=== PATIENT | male | born 1945 | race African-American/Black ===

== ENCOUNTER 2020-05-24 19:56 | Observation (INO) | payer MEDICARE, BC, OTHER ==
[2020-05-24 20:38] LABS: #Basophils 0.1 thou/uL (0.0-0.2); #Eosinphils 0.1 thou/uL (0.0-0.7); #Monocytes 0.6 thou/uL (0.11-0.59); #Neutrophils 2.3 thou/uL (1.40-6.50); %Basophils 2.6 % (0.0-1.0); %Eosinophils 1.4 % (0.0-10.0); %Lymphocytes 38.4 % (21.0-51.0); %Monocytes 11.8 % (0.0-10.0); %Neutrophils 45.7 % (42.0-75.0); Hemoglobin 13.6 g/dL (14.0-18.0); Mean Corpuscular HGB CONC 33.9 g/dL (32.0-36.0); Mean Corpuscular Hemoglobin 32.6 pg (27.0-31.0); Mean Corpuscular Volume 96.3 fL (78.0-98.0); Mean Platelet Volume 7.3 fL (7.4-10.4); Platelet Count 217 thou/uL (130-400); RBC Distribution Width 10.9 % (11.5-14.5); Red Blood Cell (RBC) Count 4.17 mill/uL (4.70-6.10); White Blood Cell (WBC) Count 5.1 thou/uL (4.8-10.8)
[2020-05-24 20:58] LABS: ALT (SGPT) 20 U/L (8-55); AST (SGOT) 26 U/L (5-34); Albumin 4.1 g/dL (3.4-4.8); Alkaline Phosphatase 48 U/L (40-110); Anion Gap 13 mmol/L (10-20); BUN (Urea Nitrogen) 20 mg/dL (8.4-25.7); Bilirubin, Total 0.4 mg/dL (0.2-1.2); Calc. Creatinine Clearance 0 mL/min (70-130); Calcium 9.4 mg/dL (7.8-10.44); Carbon Dioxide 29 mmol/L (23-31); Chloride 104 mmol/L (98-107); Globulin 3.4 g/dL (2.4-3.5); Glucose 131 mg/dL (83-110); Potassium 4.2 mmol/L (3.5-5.1); Protein, Total 7.5 g/dL (5.8-8.1); Sodium 142 mmol/L (136-145)
--- NOTE | 2020-05-24 21:09 | RAD ---
Exam: Chest one view HISTORY:Dizziness. Headache. Comparison: None FINDINGS: Cardiac silhouette: Normal Aorta: Unremarkable Pulmonary vessels: Normal Costophrenic angles: Clear LUNGS: No masses or consolidation. Pneumothorax: None Osseous abnormalities: Incompletely evaluated cervical fusion hardware. IMPRESSION: No acute cardiopulmonary process.
--- NOTE | 2020-05-24 23:49 | CT ---
Exam: Head CT without contrast HISTORY: Dizziness, x3 days. Worsening symptoms COMPARISON: 03/18/2011 FINDINGS: Hemorrhage: No intraparenchymal hemorrhage or extra-axial hematoma. Brain parenchyma: Cortical rock-white matter differentiation is preserved. No mass effect or midline shift. Basilar cisterns are patent. Ventricular system: Ventricles and sulci are patent and symmetric. Calvarium: Intact. Sinuses and mastoid air cells: Right sphenoid sinus disease. IMPRESSION: 1. No acute intracranial process. 2. Right sphenoid sinus disease.
[2020-05-25 00:15] LABS: SARS-CoV-2 NAA Rapid Test Not Detected (NotDetected)
--- NOTE | 2020-05-25 00:30 | PDOC.FPRHP ---
- History of Present Illness Chief Complaint: dizziness History of Present Illness: 75YOM with a PMH of ERNESTINE, HTN & parkinsons who presented to the ED for evaluation for dizziness. Episode occurred at home tonight while walking around in kitchen cooking turkey. Cook lightheaded like he was going to pass out. Denies syncope or LOC. Says he stood still for a little while and it passed, lasting only about a minute. Had a similar episode on Saturday. Has been taking meds as prescribed with no recent changes in his medications. Eating and drinking as per normal. Admits to not using his CPAP on a regular basis. Denies any associated N/V/D, CP, SOB, palpitations. Denies any significant heart history. ED Course: no meds given in ER - Allergies/Adverse Reactions Allergies Allergy/AdvReac Type Severity Reaction Status Date / Time No Known Allergies Allergy Unverified 05/25/20 01:25 - Home Medications Medication Instructions Recorded Confirmed Type Aspirin Chewable [Aspirin Chewable 81 mg PO DAILY 05/25/20 05/25/20 History Tablet] Atorvastatin Calcium 20 mg PO DAILY 05/25/20 05/25/20 History Multivit-Min/FA/Lycopen/Lutein 05/25/20 History [Centrum Silver Men Tablet] NIFEdipine [Procardia XL] 60 mg PO DAILY 05/25/20 05/25/20 History Primidone 50 mg PO BID 05/25/20 05/25/20 History Rasagiline Mesylate 1 mg PO 05/25/20 History Triamterene/Hydrochlorothiazid 1 each PO 05/25/20 History [Dyazide 37.5-25 Capsule] traZODone HCl [Trazodone HCl] 50 mg PO QPM 05/25/20 05/25/20 History - History PMHx: ERNESTINE, HTN, HLD, Parkinson's disease PSHx: Cervical spine fusion (C5-C7), lipoma excision FHx: Mother from [place] from smoke exposure. Father from prostate [place]. Sister with DM. Social: Lives with of 18 years in [place]. No TAD. Former cigar smoker. Quit in the 80s. Denies caffeine intake - Review of Systems General: denies: fever/chills, weight/appetite/sleep changes ENT: denies: nasal congestion Respiratory: denies: cough, shortness of breath Cardiovascular: denies: chest pain, palpitation Gastrointestinal: denies: nausea, vomiting, diarrhea Genitourinary: reports: other (no hematuria). denies: dysuria Neurological: denies: numbness, syncope, weakness - Vital signs BP: 143/72 HR: 63 RR: 17 Tmax: 98.6F Pox: 98% on RA Wt: 77.11 kg - Physical Exam Constitutional: NAD, awake, alert and oriented, well developed HEENT: normocephalic and atraumatic, grossly normal vision, grossly normal hearing, MMM Neck: supple, FROM, no bruits Heart: RRR, normal S1/S2, no murmurs/rubs/gallops, no edema Lungs: CTAB, no respiratory distress, good air movement, no rales/rhonchi, no wheezing, no retractions Abdomen: soft, non-tender, bowel sounds present, no masses/distention Musculoskeletal: normal structure, normal tone, ROM grossly normal Neurological: no focal deficit, CN II-XII intact (grossly intact) Skin: no rash/lesions, no jaundice Heme/Lymphatic: no unusual bruising or bleeding Psychiatric: normal mood and affect, good judgment and insight, intact recent and remote memory FMR H&P: Results - Labs Result Diagrams: 05/24/20 20:22 05/24/20 20:22 Lab results: WBC 5.1 thou/uL (4.8-10.8) 05/24/20 20:22 Hgb 13.6 g/dL (14.0-18.0) L 05/24/20 20:22 Hct 40.2 % (42.0-52.0) L 05/24/20 20:22 MCV 96.3 fL (78.0-98.0) 05/24/20 20:22 Plt Count 217 thou/uL (130-400) 05/24/20 20:22 Neutrophils % 45.7 % (42.0-75.0) 05/24/20 20:22 Sodium 142 mmol/L (136-145) 05/24/20 20:22 Potassium 4.2 mmol/L (3.5-5.1) 05/24/20 20:22 Chloride 104 mmol/L (98-107) 05/24/20 20:22 Carbon Dioxide 29 mmol/L (23-31) 05/24/20 20:22 BUN 20 mg/dL (8.4-25.7) 05/24/20 20:22 Creatinine 1.25 mg/dL (0.7-1.3) 05/24/20 20: Glucose 131 mg/dL (83-110) H 05/24/20 20:22 Calcium 9.4 mg/dL (7.8-10.44) 05/24/20 20: Total Bilirubin 0.4 mg/dL (0.2-1.2) 05/24/20 20:22 AST 26 U/L (5-34) 05/24/20 20:22 ALT 20 U/L (8-55) 05/24/20 20:22 Alkaline Phosphatase 48 U/L (40-110) 05/24/20 20: Serum Total Protein 7.5 g/dL (5.8-8.1) 05/24/20 20: Albumin 4.1 g/dL (3.4-4.8) 05/24/20 20:22 - EKG Interpretation EKG: sinus rhythm, PVCs FMR H&P: A/P - Plan Pt is a 75yo male with PMH ERNESTINE, HTN, Parkinson's disease who presents with acute onset of lightheadedness. #presyncope, etiology unknown -ekg showed frequent PVCs, no significant heart history including arrhythmias -Brain CT: no acute intracranial process -electrolytes WNL, trop neg, TSH normal -pending orthostatics -will monitor overnight, repeat ekg in am -may need outpatient referral to guest advisor #ERNESTINE -potential etiology of PVC's -educate patient on importance of adequate treatment #HTN -continue home meds #Parkinson's disease -continue home meds #HLD -continue home meds Code: Full PCP: CONNER IVF: SL Diet: HH DVT PPx: SCDs Dispo: Admit to tele for observation, repeat ekg in am, LOS<48hrs FMR H&P: Upper Level - Pertinent history PCP: [facility] HPI: 75YOM with a PMH notable for Parkinsons disease, HTN & ERNESTINE who presented to the ED for evaluation for dizziness. Reports that earlier today while he was cooking turkey at home standing in his kitchen he had sudden onset dizziness. Reports he felt lightheaded like he might pass out and states this sensation lasted ~1 minute before subsiding on its own. Denies any associated vertigo, N/V, SOB or chest pain. Had a similar episode on Saturday but previously has never had an episode like this before. No recent medication changes & is compliant with his home meds. Has never been diagnosed with any arrhythmia or seen a guest advisor. Denies any fever/chills, cough, sore throat or dysuria or urinary frequency as well. ED course: No meds given - Pertinent findings Labs/Imaging: CT brain: NAF CXR: NAF H/H 13.6/40.2 Trop <0.010 Mag 2.0 K 4.2 REVIEW OF SYSTEMS: 12 point ROS negative except what was mentioned in HPI Vitals: BP: 124/60 HR: 63 RR: 17 Tmax: 98.6F Pox: 98% on RA Wt: 77.11 kg PHYSICAL EXAMINATION: General: Sitting up in bed in NAD HEENT: normocephalic atraumatic Neck: Supple. Full ROM. Heart/Cardiovascular System: RRR, no murmurs noted Lungs/Respiratory System: CTAB Abdomen/Gastro-Intestinal System: soft w/ no mild suprapubic abdominal tenderness, normal bowel sounds Extremities: Warm with full & equal pulses in B/L feet noted. Neuro: knitting demonstrator grossly intact; non-focal Skin: No rashes. - Plan Date/Time: 05/25/20 0030 IFreda, have evaluated this patient and agree with findings/plan as outlined by internist resident. Pertinent changes/additions are listed here. A/P: #Dizziness 2/2 cardiac arrhythmia vs. orthostasis: -Frequent PVCs noted on EKG & while examining patient in room but was asymptomatic at the time. Orthostatic vitals to be obtained in the AM. Lytes WNLs on CMP as well as Mg but will check a TSH & Phos as well. Brain CT [facility] which was WNLs. Will continue continuous cardiac monitoring overnight & obtain a repeat EKG in the AM. Will obtain a UA as well as room smelled strongly of urine to r/o an infection as a possible source of his dizziness although patient denied having any urinary issues. #Normocytic anemia: H/H 13.6/40.2 on presentation. Needs an outpatient workup. #Parkinsons Disease: Aware, will resume home meds. #HTN: Will resume home Lisinopril. #HLD: Will resume home meds. #ERNESTINE: Aware, wears a CPAP at night occasionally. Will middle school guidance counselor on importance of more consistent use. #Insomnia: Will resume home meds. PCP: [facility] ABx: None IVFs: SL VTE PPX: SCDs GI PPX: None Code status: FULL CODE Dispo: Will admit to telemetry for close observation overnight to monitor for any arrhythmias.
[2020-05-25] MEDS ORDERED: Ondansetron ODT 4 MG TAB PO PRN (01:12)
[2020-05-25] MEDS ORDERED: Ondansetron PF 4 MG/2 ML Vial IVP PRN (01:12)
[2020-05-25] MEDS ORDERED: Acetaminophen 325 MG TAB PO PRN (01:12)
[2020-05-25 01:13] LABS: Phosphorus 3.9 mg/dL (2.3-4.7)
[2020-05-25] MEDS ORDERED: traZODone HCl 50 MG TAB PO SCH (01:30)
[2020-05-25] MEDS ORDERED: traZODone HCl 50 MG TAB ONE (03:22)
--- NOTE | 2020-05-25 08:43 | PDOC.EVN ---
Addendum - Attending - Attending Attestation Date/Time: 05/25/20 4225 I personally evaluated the patient and discussed the management with Dr. Hall/Vick. I agree with the History, Examination, Assessment and Plan documented above with any addition or exceptions noted below. Patient here for symptomatic PVCs. He has history of orthostasis but symptoms not c/w that, and he is on Primidone. Will obtain echo and consult cardiology for further evaluation.
[2020-05-25] MEDS ORDERED: NIFEdipine XL 30 MG TAB ONE (10:39)
[2020-05-25] MEDS: Aspirin Chewable 81 MG TAB PO SCH (13:06)
[2020-05-25] MEDS: Atorvastatin Calcium 20 MG TAB PO SCH (13:06)
[2020-05-25] MEDS: NIFEdipine XL 60 MG TAB PO SCH (13:07)
[2020-05-25] MEDS: Primidone 50 MG TAB PO SCH ×2 (13:07→22:00)
[2020-05-25] MEDS: Triamterene/Hydrochlorothiazide 37.5 mg/25 mg Tablet PO SCH (13:08)
--- NOTE | 2020-05-25 15:54 | CON ---
DATE OF CONSULTATION: HISTORY OF PRESENT ILLNESS: Austin Li is a 75-year-old male, who denies any cardiac problems in the past. He has had 2 episodes of extreme weakness and dizziness. One occurred on May 21 and the other occurred on May 24. With these episodes, he became extremely lightheaded and dizzy and felt very weak. He denied any associated chest pain, palpitations, diaphoresis, nausea, or vomiting. He denied any history of syncope. The episodes would last approximately 1 minute. He states that when he arrived here to the emergency room that he still was having it to a slight degree and his EKG showed ventricular trigeminy. He denies any recent fever, cough, shortness of breath, chest discomfort, or peripheral edema. PAST MEDICAL HISTORY: Hypertension, hypercholesterolemia, Parkinson's, obstructive sleep apnea. He apparently is noncompliant with his CPAP. MEDICATIONS: 1. Aspirin 81 daily. 2. Atorvastatin 20 mg daily. 3. Nifedipine 60 mg daily. 4. Primidone 50 mg b.i.d. 5. Rasagiline 1 mg daily. 6. Triamterene/hydrochlorothiazide q.a.m. 7. Trazodone 50 mg q.p.m. ALLERGIES: NONE. SOCIAL HISTORY: He smokes cigars, but stopped 30 years ago. He does not drink. REVIEW OF SYSTEMS: A 10-point review of systems is otherwise unremarkable. PHYSICAL EXAMINATION: VITAL SIGNS: Blood pressure 155/75, pulse 59. HEENT: PERRL. NECK: Supple. CHEST: Clear. CARDIAC: S1 and S2 normal without any S3, S4, or murmurs. Carotid upstrokes normal without bruits. ABDOMEN: Normal bowel sounds without tenderness or organomegaly. EXTREMITIES: Revealed no clubbing, cyanosis, or edema. NEUROLOGIC: Grossly intact. SKIN: Warm and dry. LABORATORY DATA: EKG on admission revealed ventricular trigeminy. EKG this morning shows no ventricular ectopy. Hemoglobin 13.6, hematocrit 40.2, white count 5100, platelets 217,000. Sodium 142, potassium 4.2, chloride 104, carbon dioxide 20, BUN 1.25, glucose 121. Troponin I 0.010. TSH is normal. COVID negative. Chest x- ray reveals no acute process. Brain CT revealed right sphenoid sinus disease, but no intracranial abnormalities. IMPRESSION: 1. Two episodes of dizziness lasting approximately 1 minute. 2. Frequent ventricular ectopy with EKG showing ventricular trigeminy. It is unclear if this is associated with his lightheaded episodes. 3. Hypertension. 4. Hypercholesterolemia. 5. Parkinson disease. 6. Obstructive sleep apnea, noncompliant with CPAP. PLAN: With PVCs, cardiomyopathy and ischemic heart disease needs to be ruled out. Echocardiogram and adenosine Cardiolite will be performed. He will be monitored on telemetry. Fasting lipid profile will be obtained. Consideration may be given to outpatient monitor if no specific etiology is found. Job ID: [id number] LORRI
[2020-05-25] MEDS ORDERED: RASAGILINE MESYLATE 1 MG PO SCH (21:00)
[2020-05-25] MEDS ORDERED: Sodium Chloride 0.9% 10 ML ONE (21:54)
[2020-05-25 23:19] LABS: Bacteria/HPF None Seen HPF (None Seen); Bilirubin Negative (Negative); Blood, Urine Negative (Negative); Clarity Clear (Clear); Glucose, Urine (Dipstick) Normal (Negative); Ketone, Urine Negative (Negative); Leukocyte Negative Leu/uL (Negative); Nitrite Negative (Negative); Protein, Urine (Dipstick) Negative (Neg-Trace); Specific Gravity, Urine 1.018 (1.002-1.036); Squamous Epithelial None Seen HPF (0-3); WBC/HPF 0-3 HPF (0-3); pH, Urine 7.5 (5.0-9.0)
[2020-05-25 23:20] LABS: Urine Culture Reflex No No
[2020-05-26 04:55] LABS: Cardiac Risk 3.9 (Less than 4.5)
--- NOTE | 2020-05-26 08:11 | PDOC.FM ---
- Subjective Subjective: Pt is doing well this morning. He had his stress test, echo performed. Discussed case with Dr. Brown on 05/25. He denies any symptoms at this time. - Objective Vital Signs & Weight: Vital Signs (12 hours) Temp Pulse Resp BP BP Pulse Ox 05/26/20 04:45 98.4 F 63 18 140/68 94 L 05/25/20 20:05 98.5 F 60 18 147/67 H 99 Weight Weight 83.461 kg I&O: 05/24/20 05/25/20 05/26/20 06:59 06:59 06:59 Intake Total 450 Output Total 200 Balance 250 Result Diagrams: 05/24/20 20:22 05/24/20 20:22 EKG Reviewed by me: Yes (Tele: sinus rhythm with PVC's) Phys Exam - Physical Examination Constitutional: NAD HEENT: sclera anicteric Neck: no JVD, full ROM Respiratory: no wheezing, no rhonchi Cardiovascular: RRR, no significant murmur Gastrointestinal: soft, positive bowel sounds Musculoskeletal: no edema, pulses present Neurological: non-focal, moves all 4 limbs Psychiatric: normal affect, A&O x 3 Dx/Plan - Plan Plan: Pt is a 75yo male with PMH ERNESTINE, HTN, Parkinson's disease who presents with acute onset of lightheadedness. # PVC's - Arrhythmia -Echo pending -Stress test results pending -Cardiology consulted, appreciate rec's #ERNESTINE -potential etiology of PVC's -educate patient on importance of adequate treatment #HTN -continue home meds #Parkinson's disease -continue home meds #HLD -continue home meds Code: Full PCP: [facility] IVF: SL Diet: HH DVT PPx: SCDs Dispo: Admit to tele for observation, pending cardiology rec's Addendum - Attending - Attending Attestation Date/Time: 05/26/20 1141 I personally evaluated the patient and discussed the management with Dr. Yancey. I agree with the History, Examination, Assessment and Plan documented above with any addition or exceptions noted below. Patient feels well. He is undergoing stress and TTE today. Further mgmt per cardiology recs, but hopeful these are not symptomatic ventricular arrhythmias and he can be discharged after cardiology evaluation.
--- NOTE | 2020-05-26 11:15 | NM ---
EXAM: NM Cardiac Stress W EF WF PROVIDED CLINICAL HISTORY: Premature ventricular contractions COMPARISON: None RADIOPHARMACEUTICAL: 27.80 millicuries technetium 99m labeled sestamibi IV stress 9.9 millicuries technetium 99m labeled sestamibi IV rest FINDINGS: There is normal, homogeneous distribution of radiotracer throughout the left ventricular myocardium. Gated data demonstrate normal myocardial wall motion and thickening with calculated LVEF 65%. Calculated TID is 1.2. IMPRESSION: 1. No scintigraphic evidence for ischemia. 2. Calculated LVEF 65%.
[2020-05-26] MEDS: Aspirin Chewable 81 MG TAB PO SCH (12:15)
[2020-05-26] MEDS: Atorvastatin Calcium 20 MG TAB PO SCH (12:15)
[2020-05-26] MEDS: Triamterene/Hydrochlorothiazide 37.5 mg/25 mg Tablet PO SCH (12:15)
[2020-05-26] MEDS: NIFEdipine XL 60 MG TAB PO SCH (12:15)
[2020-05-26] MEDS: Primidone 50 MG TAB PO SCH (12:17)
[2020-05-26 12:29] VITALS: BMI 30.6
[2020-05-26] MEDS ORDERED: ADENOSINE 60 MG/20 ML VIAL ONE (12:38)
[2020-05-26 15:23] VITALS: BP 134/64; TEMP 98.6
[2020-05-26 15:39] LABS: Hemoglobin A1c 5.7 % (4.0-6.0)
[2020-05-26] MEDS ORDERED: Prevnar 13-Val Conj/PF 0.5 ML SYRINGE IM ONE (16:15)
[2020-05-26] MEDS ORDERED: FLU VACC QS2020-21(65YR UP)/PF 240 MCG/0.7 ML SYRINGE IM ONE (16:15)
[2020-05-26] MEDS ORDERED: traZODone HCl 50 MG TAB PO SCH (21:00)
== END 2020-05-26 18:14 | disposition home or self-care (01) ==
LOC: ERS 19:56 → ERHOLD 05-25 00:39 → 2NO 05-25 15:34
PROVIDERS: ADMIT Family Medicine; ATTEND Family Medicine
DX: I49.3 Ventricular premature depolarization (principal); R42 Dizziness and giddiness; R55 Syncope and collapse; G47.33 Obstructive sleep apnea (adult) (pediatric); I10 Essential (primary) hypertension; G20 Parkinson's disease; E78.5 Hyperlipidemia, unspecified; D64.9 Anemia, unspecified; G47.00 Insomnia, unspecified; J32.3 Chronic sphenoidal sinusitis; E78.00 Pure hypercholesterolemia, unspecified; I42.9 Cardiomyopathy, unspecified; Z87.891 Personal history of nicotine dependence; Z91.19 Patient's noncompliance with other medical treatment and regimen; Z79.82 Long term (current) use of aspirin; Z79.899 Other long term (current) drug therapy; Z98.1 Arthrodesis status; Z20.822 Contact with and (suspected) exposure to COVID-19
CPT/HCPCS: 70450; 71045; 78452; 80053; 80061; 81001; 83036; 83735; 84100; 84443; 84484; 85025; 93005 ×2; 93017; 93306; 94760; A9500; U0002; 36415; 93010; G0378; J0153

== ENCOUNTER 2020-06-27 20:31 | Inpatient (IN) | payer MEDICARE, BC, OTHER ==
--- NOTE | 2020-06-27 21:11 | RAD ---
Portable frontal chest radiograph: 06/27/2020 COMPARISON: 05/24/2020 HISTORY: Lightheaded FINDINGS: Lungs are clear. Heart and mediastinal contours appear within normal limits. IMPRESSION: No acute findings.
[2020-06-27 21:42] LABS: #Basophils 0.1 thou/uL (0.0-0.2); #Eosinphils 0.1 thou/uL (0.0-0.7); #Lymphocytes 1.8 thou/uL (1.20-3.40); #Monocytes 0.4 thou/uL (0.11-0.59); #Neutrophils 2.2 thou/uL (1.40-6.50); %Basophils 2.1 % (0.0-1.0); %Eosinophils 1.2 % (0.0-10.0); %Lymphocytes 39.6 % (21.0-51.0); %Monocytes 8.9 % (0.0-10.0); %Neutrophils 48.2 % (42.0-75.0); Mean Corpuscular HGB CONC 34.2 g/dL (32.0-36.0); Mean Corpuscular Hemoglobin 32.4 pg (27.0-31.0); Mean Corpuscular Volume 94.8 fL (78.0-98.0); Mean Platelet Volume 7.3 fL (7.4-10.4); Platelet Count 218 thou/uL (130-400); RBC Distribution Width 10.6 % (11.5-14.5); Red Blood Cell (RBC) Count 4.01 mill/uL (4.70-6.10); White Blood Cell (WBC) Count 4.6 thou/uL (4.8-10.8)
[2020-06-27 22:04] LABS: ALT (SGPT) 30 U/L (8-55); Albumin 3.9 g/dL (3.4-4.8); Alkaline Phosphatase 51 U/L (40-110); Anion Gap 13 mmol/L (10-20); BUN (Urea Nitrogen) 24 mg/dL (8.4-25.7); Bilirubin, Total 0.4 mg/dL (0.2-1.2); Calc. Creatinine Clearance 0 mL/min (70-130); Carbon Dioxide 26 mmol/L (23-31); Chloride 104 mmol/L (98-107); Globulin 3.3 g/dL (2.4-3.5); Glucose 212 mg/dL (83-110); Protein, Total 7.2 g/dL (5.8-8.1); Sodium 139 mmol/L (136-145)
[2020-06-27 22:53] LABS: AST (SGOT) 24 U/L (5-34)
[2020-06-28] MEDS ORDERED: Bisacodyl 5 MG TAB PO PRN (00:17)
[2020-06-28] MEDS ORDERED: Acetaminophen 325 MG TAB PO PRN (00:17)
[2020-06-28] MEDS ORDERED: HYDROcodone/Acetaminophen 7.5/325 mg Tablet PO PRN (00:17)
[2020-06-28] MEDS ORDERED: Zolpidem Tartrate 5 MG TAB PO PRN (00:17)
[2020-06-28] MEDS ORDERED: Calcium Carbonate 500 MG ChewTAB PO PRN (00:17)
--- NOTE | 2020-06-28 00:23 | PDOC.HHP ---
Hospitalist HPI Palpitation and dizziness History of Present Illness: 75-year-old -[place] male with past medical history of Parkinson's disease, hypertension admitted 1 month ago and discharged after presenting with intermittent palpitation and recurrent dizziness. Patient on the outpatient with has been following with Dr. Brown. He states he had a event monitor placed last week which was returned 3 days ago. He states he has not heard back from the cardiology office. Develop recurrent palpitation and dizziness this morning while ambulating. He felt near syncope. He denies any chest pain. He presented to the ED because of persistent symptoms. He states during the time he had the event monitor he has mild symptoms but not as much as intensity of symptoms today. He denies any cough or fever. On arrival in the ED was noted with multiple PVCs with intermittent couplets. He has been admitted for rule o ut. Patient said he had blood work done by his PCP last month and was told he has mild elevated glucose. His lab work with him today show his fasting glucose was 155 on the blood work. He states he was not started on any medication. EKG today shows no acute arrhythmia except for PVCs. Allergies/Adverse Reactions: Allergy/AdvReac Type Severity Reaction Status Date / Time No Known Allergies Allergy Unverified 05/25/20 01:25 Home Medications: Medication Instructions Recorded Confirmed Type Aspirin Chewable [Aspirin Chewable 81 mg PO ASDIR 05/25/20 05/25/20 History Tablet] Atorvastatin Calcium 20 mg PO DAILY 05/25/20 05/25/20 History Multivit-Min/FA/Lycopen/Lutein 1 tab PO DAILY 05/25/20 05/25/20 History [Centrum Silver Men Tablet] NIFEdipine [Procardia XL] 60 mg PO DAILY 05/25/20 05/25/20 History Primidone 50 mg PO BID 05/25/20 05/25/20 History Rasagiline Mesylate 1 mg PO DAILY 05/25/20 05/25/20 History Triamterene/Hydrochlorothiazid 1 each PO DAILY 05/25/20 05/25/20 History [Dyazide 37.5-25 Capsule] traZODone HCl [Trazodone HCl] 50 mg PO QPM 05/25/20 05/25/20 History Past History: PMHx: Parkinson's disease Hypertension Anxiety disorder PSHx: 5194 fusion laminectomy Lipoma excision left shoulder FHx: Noncontributory Social: No history of tobacco alcohol or illicit drug use, fully function at baseline Hospitalist HPI ROS All other systems reviewed; all pertinent +/- noted in HPI/Subj Hospitalist Exam General Appearance: NAD, awake alert Eye: PERRL, anicteric sclera ENT: normocephalic atraumatic, no oropharyngeal lesions, moist mucosa Neck: supple, symmetric, no JVD, no carotid bruit Heart: RRR, no murmur Respiratory: CTAB, no wheezes, no rales Gastrointestinal: soft, non-tender, non-distended Extremities: no cyanosis, no clubbing Skin: normal turgor, no lesions Neurological: cranial nerve grossly intact, normal sensation to touch, no focal deficits Musculoskeletal: normal tone, normal strength Psychiatric: normal affect, normal behavior Hospitalist Results Result Diagrams: 06/27/20 21:18 06/27/20 21:18 Lab results: Laboratory Last Values WBC 4.6 thou/uL (4.8-10.8) L 06/27/20 21:18 RBC 4.01 mill/uL (4.70-6.10) L 06/27/20 21:18 Hgb 13.0 g/dL (14.0-18.0) L 06/27/20 21:18 Hct 38.0 % (42.0-52.0) L 06/27/20 21:18 MCV 94.8 fL (78.0-98.0) 06/27/20 21:18 MCH 32.4 pg (27.0-31.0) H 06/27/20 21:18 MCHC 34.2 g/dL (32.0-36.0) 06/27/20 21:18 RDW 10.6 % (11.5-14.5) L 06/27/20 21:18 Plt Count 218 thou/uL (130-400) 06/27/20 21:18 MPV 7.3 fL (7.4-10.4) L 06/27/20 21:18 Neutrophils % 48.2 % (42.0-75.0) 06/27/20 21:18 Lymphocytes % 39.6 % (21.0-51.0) 06/27/20 21:18 Monocytes % 8.9 % (0.0-10.0) 06/27/20 21:18 Eosinophils % 1.2 % (0.0-10.0) 06/27/20 21:18 Basophils % 2.1 % (0.0-1.0) H 06/27/20 21:18 Neutrophils # 2.2 thou/uL (1.40-6.50) 06/27/20 21:18 Lymphocytes # 1.8 thou/uL (1.20-3.40) 06/27/20 21:18 Monocytes # 0.4 thou/uL (0.11-0.59) 06/27/20 21:18 Eosinophils # 0.1 thou/uL (0.0-0.7) 06/27/20 21:18 Basophils # 0.1 thou/uL (0.0-0.2) 06/27/20 21:18 Sodium 139 mmol/L (136-145) 06/27/20 21:18 Potassium 4.0 mmol/L (3.5-5.1) 06/27/20 21:18 Chloride 104 mmol/L (98-107) 06/27/20 21:18 Carbon Dioxide 26 mmol/L (23-31) 06/27/20 21:18 Anion Gap 13 mmol/L (10-20) 06/27/20 21:18 BUN 24 mg/dL (8.4-25.7) 06/27/20 21:18 Creatinine 1.19 mg/dL (0.7-1.3) 06/27/20 21:18 Estimated GFR (MDRD) 72 06/27/20 21:18 Glucose 212 mg/dL (83-110) H 06/27/20 21:18 Calcium 9.0 mg/dL (7.8-10.44) 06/27/20 21:18 Total Bilirubin 0.4 mg/dL (0.2-1.2) 06/27/20 21:18 AST 24 U/L (5-34) 06/27/20 21:18 ALT 30 U/L (8-55) 06/27/20 21:18 Alkaline Phosphatase 51 U/L (40-110) 06/27/20 21:18 Troponin I 0.015 ng/mL (< 0.028) 06/27/20 21:40 Serum Total Protein 7.2 g/dL (5.8-8.1) 06/27/20 21:18 Albumin 3.9 g/dL (3.4-4.8) 06/27/20 21:18 Globulin 3.3 g/dL (2.4-3.5) 06/27/20 21:18 Albumin/Globulin Ratio 1.2 g/dL (1.2-2.2) 06/27/20 21:18 Hospitalist H&P A/P (1) Hypertension Code(s): I10 - ESSENTIAL (PRIMARY) HYPERTENSION Status: Acute (2) Symptomatic PVCs Code(s): I49.3 - VENTRICULAR PREMATURE DEPOLARIZATION Status: Acute (3) Parkinsons disease Code(s): G20 - PARKINSON'S DISEASE Status: Acute (4) Hyperglycemia Code(s): R73.9 - HYPERGLYCEMIA, UNSPECIFIED Status: Acute Plan: #Symptomatic PVCs with coupletswe will place on telemetry We will consult cardiology to review event monitor Since recurrent PVCs we will start patient on low-dose beta-diego We will obtain magnesium and TSH level since patient is on chronic diuretics We will follow #Hypertensionblood pressure control, will hold HCTZ/triamtereneMaxide for now Follow magnesium level Continue nifedipine We will add low-dose Coreg #Parkinson's diseaseresume home meds #Hyperlipidemiacontinue statin #Hyperglycemiastill elevated glucose although on random sample now We will obtain hemoglobin A1c We do Accu-Cheks every 6 for now follow If elevated hemoglobin A1c of persistent elevated glucose we will start patient on medication for diabetes as well as initiate diabetic counseling #DVT prophylaxissubcutaneous Lovenox #Advance directivediscussed with patient, he wishes to be full code #Dispositionpossible hospital stay for more than 24 to 48 hours
[2020-06-28] MEDS ORDERED: Aspirin Chewable 81 MG TAB PO SCH ×2 (00:30→09:00)
[2020-06-28 00:55] LABS: Hemoglobin A1c 5.8 % (4.0-6.0)
[2020-06-28 00:59] LABS: #Basophils 0.1 thou/uL (0.0-0.2); #Eosinphils 0.1 thou/uL (0.0-0.7); #Lymphocytes 2.3 thou/uL (1.20-3.40); #Monocytes 0.6 thou/uL (0.11-0.59); #Neutrophils 2.1 thou/uL (1.40-6.50); %Basophils 2.1 % (0.0-1.0); %Eosinophils 1.3 % (0.0-10.0); %Lymphocytes 43.9 % (21.0-51.0); %Neutrophils 40.7 % (42.0-75.0); Hemoglobin 12.3 g/dL (14.0-18.0); Mean Corpuscular HGB CONC 33.9 g/dL (32.0-36.0); Mean Corpuscular Hemoglobin 32.2 pg (27.0-31.0); Mean Corpuscular Volume 94.8 fL (78.0-98.0); Mean Platelet Volume 6.9 fL (7.4-10.4); Platelet Count 192 thou/uL (130-400); RBC Distribution Width 10.7 % (11.5-14.5); Red Blood Cell (RBC) Count 3.81 mill/uL (4.70-6.10); White Blood Cell (WBC) Count 5.2 thou/uL (4.8-10.8)
[2020-06-28 06:01] LABS: SARS-CoV-2 PCR by NAA Not Detected (NotDetected)
[2020-06-28] MEDS ORDERED: Carvedilol 3.125 MG TAB PO SCH (08:00)
[2020-06-28] MEDS ORDERED: Enoxaparin Sodium 40 MG/0.4 ML SYRINGE ONE (08:07)
[2020-06-28] MEDS ORDERED: Aspirin Chewable 81 MG TAB ONE (08:07)
[2020-06-28] MEDS ORDERED: NIFEdipine XL 30 MG TAB ONE (08:07)
[2020-06-28] MEDS: NIFEdipine XL 60 MG TAB PO SCH (09:12)
[2020-06-28] MEDS: Atorvastatin Calcium 20 MG TAB PO SCH (09:12)
[2020-06-28] MEDS: Enoxaparin Sodium 40 MG/0.4 ML SYRINGE SC SCH (09:12)
[2020-06-28] MEDS: Primidone 50 MG TAB PO SCH ×3 (09:13→21:27)
[2020-06-28 15:45] VITALS: BMI 30.4
--- NOTE | 2020-06-28 16:25 | PRG ---
DATE OF SERVICE: 06/28/2020 TIME OF SERVICE: 1:00 p.m. CONSULTATIONS ON THE CASE: Dr. Brown, Cardiology. SUBJECTIVE: The patient was seen and evaluated at bedside. This is a very pleasant 75-year-old gentleman, who was admitted to the hospitalist services for complaints of palpitations associated with dizziness. The patient has an extensive history of recently being evaluated with a stress test, which was negative for ischemia and also the patient had a Holter monitor evaluation, which has recently been posted to Dr. Brown for further evaluation. Currently, the patient is comfortably walking in front of [place]j. Does not have any episodes of dizziness or shortness of breath. OBJECTIVE: VITAL SIGNS: Temperature 98.0 degrees Fahrenheit, heart rate of 57 per minute, respiratory rate of 18 per minute, saturation 100% on room air, has a blood pressure of 153/75 mmHg. GENERAL: Has an airway, which is clear. HEENT: Atraumatic, normocephalic. NECK: Supple. No bruit. No lymphadenopathy. CV: S1 and S2. No abnormal rhythms, but PVCs noted. CHEST: Bilateral air entry present. No rhonchi. No wheeze. ABDOMEN: Soft, nontender. Bowel sounds are present. No organomegaly. EXTREMITIES: No cyanosis. Nonicteric. No pallor. NEUROLOGIC: The patient is alert, oriented. No focal motor or sensory deficits noted. HEME: No ecchymosis or petechiae. PSYCH: No depression or anxiety. DIAGNOSTIC STUDIES: WBC is 5.2, hemoglobin 12.3, hematocrit 36.2, platelets are 192. COVID screen is negative. We will do a CBC, CMP evaluation tomorrow in a.m. ASSESSMENT: 1. Recurrent episodes of dizziness and generalized weakness associated with symptomatic PVCs as well as trigeminy. Cardiology consulted for further review and evaluate. 2. Parkinson disease. 3. Benign essential hypertension. 4. Hyperlipidemia, on statin. 5. Hyperglycemia. 6. The patient's hemoglobin is surprisingly 5.8. MEDICATIONS: I have reconciled the patient's home medications. 1. We will continue aspirin 81 mg daily along with Coreg 3.125 mg b.i.d. 2. Losartan 50 mg daily. 3. Primidone 50 mg b.i.d. PLAN: Discussed in detail of the diagnosis, treatment, and followup with the patient as well as the patient's who was present at bedside. Advised about cardiology evaluation and recommendations. Advised about discharge planning if the patient remains asymptomatic with outpatient followup. No suspicion for sick sinus syndrome is noted at this point of time. Discharge planning will depend on further clearance by Cardiology Services. Job ID: [id number]
--- NOTE | 2020-06-28 17:34 | CON ---
DATE OF CONSULTATION: HISTORY OF PRESENT ILLNESS: The patient is a 75-year-old gentleman, who presents with recurrent lightheadedness and dizziness. The patient was seen last month with dizziness and weakness. The patient underwent a cardiac evaluation including an echocardiogram, which revealed normal left ventricular systolic function. He also underwent a Cardiolite stress test and it was unremarkable. The patient was noted to have frequent PVCs. The patient had placement of a 30-day monitor. The patient again started feeling weak and nauseated. He presented once again to the emergency room with dizziness. He denied having any chest discomfort. The patient did not lose consciousness. PAST MEDICAL HISTORY: 1. Parkinson's disease. 2. Sleep apnea. 3. PVCs. 4. Hypertension. 5. Dyslipidemia. PAST SURGICAL HISTORY: Lipoma surgery and laminectomy. SOCIAL HISTORY: Nonsmoker. MEDICATIONS: 1. Nifedipine 60 XL daily 2. Cozaar 50 daily. 3. Tramadol one tablet b.i.d. 4. Lipitor 20 at bedtime. 5. Triamterene/hydrochlorothiazide one tablet daily. 6. Primidone one tablet p.o. b.i.d. 7. Trazodone 50 at bedtime. ALLERGIES: NO KNOWN DRUG ALLERGIES. PHYSICAL EXAMINATION: GENERAL: This is a well-developed gentleman, in no acute distress. VITAL SIGNS: Blood pressure 153/75, when he was sitting. Standing, his blood pressure was 144/60. NECK: Showed no jugular venous distention. LUNGS: Clear to auscultation. HEART: Regular rate and rhythm. Normal S1 and S2. No murmurs. ABDOMEN: Nondistended. EXTREMITIES: Show no edema. VASCULAR: Radial pulses are 2+. LABORATORY DATA: White blood cell count 5.2, hemoglobin 12.3, hematocrit 36.2, and platelets are 192. Sodium is 139, potassium 4.0, chloride 104, bicarbonate 26, BUN 24, and creatinine 1.19. Troponin 0.014. EKG normal sinus rhythm with sinus arrhythmia. IMPRESSION: 1. Presyncope, possibly due to bradycardia. 2. Occasional premature ventricular contractions. 3. Parkinson's disease. 4. Sleep apnea. 5. Hypertension. 6. Dyslipidemia. PLAN: This gentleman presents with spells of lightheadedness or dizziness. His reports that at times his heart rate is extremely low, He has marked bradycardia with heart rates under 50. The patient did have a 30-day monitor, which results are not available at this time. The patient is on timolol and may have symptomatic bradycardia. We will follow this patient with you through his hospitalization. Job ID: [id number] [facility]
[2020-06-28] MEDS: traZODone HCl 50 MG TAB PO SCH (21:27)
[2020-06-29 05:05] LABS: #Basophils 0.1 thou/uL (0.0-0.2); #Eosinphils 0.1 thou/uL (0.0-0.7); #Lymphocytes 1.8 thou/uL (1.20-3.40); #Monocytes 0.5 thou/uL (0.11-0.59); %Basophils 1.5 % (0.0-1.0); %Eosinophils 2.1 % (0.0-10.0); %Lymphocytes 40.9 % (21.0-51.0); %Monocytes 10.3 % (0.0-10.0); %Neutrophils 45.1 % (42.0-75.0); Hemoglobin 12.8 g/dL (14.0-18.0); Mean Corpuscular HGB CONC 33.7 g/dL (32.0-36.0); Mean Corpuscular Hemoglobin 32.1 pg (27.0-31.0); Mean Platelet Volume 7.1 fL (7.4-10.4); Platelet Count 186 thou/uL (130-400); RBC Distribution Width 10.5 % (11.5-14.5); Red Blood Cell (RBC) Count 3.98 mill/uL (4.70-6.10); White Blood Cell (WBC) Count 4.5 thou/uL (4.8-10.8)
[2020-06-29 05:27] LABS: ALT (SGPT) 23 U/L (8-55); AST (SGOT) 20 U/L (5-34); Albumin 3.4 g/dL (3.4-4.8); Alkaline Phosphatase 45 U/L (40-110); Anion Gap 8 mmol/L (10-20); BUN (Urea Nitrogen) 19 mg/dL (8.4-25.7); Bilirubin, Total 0.4 mg/dL (0.2-1.2); Calc. Creatinine Clearance 70 mL/min (70-130); Calcium 8.6 mg/dL (7.8-10.44); Carbon Dioxide 28 mmol/L (23-31); Chloride 104 mmol/L (98-107); Globulin 2.8 g/dL (2.4-3.5); Glucose 128 mg/dL (83-110); Potassium 4.2 mmol/L (3.5-5.1); Protein, Total 6.2 g/dL (5.8-8.1); Sodium 136 mmol/L (136-145)
[2020-06-29] MEDS ORDERED: Rasagiline Mesylate 1 MG Tab PO SCH (09:00)
[2020-06-29] MEDS: Primidone 50 MG TAB PO SCH ×2 (09:38→21:28)
[2020-06-29] MEDS: NIFEdipine XL 60 MG TAB PO SCH (09:38)
[2020-06-29] MEDS: Multivitamin W/ Minerals 1 TAB PO SCH (09:38)
[2020-06-29] MEDS: Enoxaparin Sodium 40 MG/0.4 ML SYRINGE SC SCH (09:38)
[2020-06-29] MEDS: Losartan 25 MG TAB PO SCH (09:38)
[2020-06-29] MEDS: Atorvastatin Calcium 20 MG TAB PO SCH (10:02)
[2020-06-29] MEDS ORDERED: Flecainide 50 MG TAB PO SCH (10:15)
--- NOTE | 2020-06-29 11:42 | PRG ---
DATE OF SERVICE: 06/29/2020 TIME OF SERVICE: 10:00 a.m. CONSULTATIONS ON THE CASE: Dr. Brown, Cardiology. SUBJECTIVE: Patient is seen and evaluated at bedside. Patient is resting well, currently does not have any complaints of chest pain and shortness of breath. Had recurrent episodes of dizziness with suspected bradycardia as well as multiple PVCs. OBJECTIVE: VITAL SIGNS: Has a temperature of 98.3 degrees Fahrenheit, pulse of 62 per minute, respiratory rate of 16 per minute, saturation of 97% on room air, has a blood pressure of 130/62 mmHg. Has an airway which is clear. HEENT: Atraumatic, normocephalic. NECK: Supple. No bruit. No lymphadenopathy. CV: S1, S2. No abnormal rhythms or murmurs. CHEST: Bilateral air entry present. No rhonchi. No wheeze. ABDOMEN: Soft, nontender. Bowel sounds are present. No organomegaly. EXTREMITIES: No cyanosis, no icterus, no pallor. NEUROLOGIC: Patient is alert, oriented x3. No focal motor or sensory deficits noted. HEME: No ecchymosis or petechiae. PSYCH: No depression or anxiety. DIAGNOSTIC STUDIES: WBC is 4.5, hemoglobin 12.8, hematocrit 37.8, platelets are 186, sodium 136, potassium 4.2, chloride 104, carbon dioxide 28, BUN 19, creatinine 1.03. MEDICATIONS: 1. Flecainide 100 mg every 12 hours. 2. Aspirin 81 mg daily. 3. Atorvastatin 20 mg daily. 4. Coreg 3.125 mg b.i.d. 5. Losartan 50 mg daily. 6. Primidone 50 mg b.i.d. 7. Trazodone 50 mg at p.m. ASSESSMENT: 1. Symptomatic bradycardia with multiple premature ventricular contractions and trigeminy cardiology consultation has been appreciated. Patient currently started on flecainide 100 mg b.i.d. 2. Parkinson disease. 3. Benign essential hypertension. 4. Hyperlipidemia, on statins. 5. Hyperglycemia. Patient's hemoglobin A1c is 5.8, so patient has been advised about diet, therapy for his current prediabetes. PLAN: Discussed in detail of the diagnosis, treatment, and followup with the patient. I have advised the patient about followup care with Cardiology Services once on discharge. If the patient does symptomatically well overnight without any episodes of dizziness and tolerates the flecainide well, discharge plan tomorrow in a.m. per my discussion with Cardiology Services. Job ID: [id number]
--- NOTE | 2020-06-29 13:04 | CON ---
DATE OF CONSULTATION: 06/29/2020 Dictated by Rubi Adan, nurse practitioner, as a scribe for Dr. Francesco Lacy. REASON FOR CONSULTATION: Premature ventricular complexes. SAILING MASTER: Theo Brown MD HISTORY OF PRESENT ILLNESS: I am seeing Mr. Li in electrophysiology consultation on the [facility] Telemetry Floor. His current problems are: 1. PVCs, with associated dizziness, lightheadedness, and weakness. 2. Parkinson disease. 3. Sleep apnea. 4. Hypertension. 5. Dyslipidemia. 6. Preserved LVEF on echocardiogram in 05/2020. 7. Cardiolite stress test, unremarkable in 05/2020. SUBJECTIVE: Mr. Li presented to the hospital with dizziness, lightheadedness, and weakness, but it largely started over the past month. This is a 2nd hospitalization for this issue. He recently underwent a cardiac workup with echocardiogram and a Cardiolite stress test, which were both normal/unremarkable. On telemetry, he is seen to have frequent PVCs, occasionally bigeminy. He denies any true syncopal episodes or any chest pain. PAST MEDICAL HISTORY: As above. PAST SURGICAL HISTORY: 1. Lipoma surgery. 2. Laminectomy. SOCIAL HISTORY: Nonsmoker. Denies alcohol or illicit drug use. He is , has a supportive family. MEDICATIONS: On admission, include: 1. Nifedipine 60 mg XL daily. 2. Cozaar 50 mg daily. 3. Tramadol one tablet b.i.d. 4. Lipitor 20 mg nightly. 5. Triamterene/hydrochlorothiazide one tablet daily. 6. Primidone one tablet p.o. b.i.d. 7. Trazodone 50 mg at bedtime. ALLERGIES: NO KNOWN DRUG ALLERGIES. OBJECTIVE: VITAL SIGNS: Temperature 98.3 degrees Fahrenheit, pulse 50, respirations 16, oxygen 97% on room air, and blood pressure 130/62. GENERAL: The patient is alert and oriented. Speech is clear. Affect is appropriate. He is in no apparent distress. CARDIAC: Heart rate is irregularly irregular with crisp S1 and S2. PMI nondisplaced. LUNGS: Clear to auscultation. Respirations even and unlabored. ABDOMEN: Benign. Positive bowel sounds throughout. EXTREMITIES: Warm and dry to touch. Well perfused without clubbing, cyanosis, or edema. NEUROLOGIC: Grossly intact and nonfocal. DIAGNOSTIC STUDIES: Telemetry and EKG show sinus rhythm with frequent monomorphic PVCs up to approximately 25% burden during the daytime only. Minimal ectopy is seen at night. IMPRESSION: 1. Frequent premature ventricular complexes. 2. Dizziness/presyncope. 3. Parkinson disease. 4. Hypertension. 5. Sleep apnea. PLAN AND RECOMMENDATIONS: Mr. Li is a pleasant 75-year-old man with an essentially normal cardiac workup thus far with the exception of his frequent PVCs, occasionally bigeminy, and reported couplets. His ventricular ectopic beats are largely seen during the day on telemetry with minimal at night. He has recently been started on carvedilol, but given his symptoms and the burden of his PVCs, I would recommend a more powerful rhythm stabilizing medication, such as flecainide 100 mg p.o. b.i.d. I will initiate this medication, starting this morning, with an EKG tomorrow morning. If his burden begins to quiet down nicely and no concerning changes are seen on EKG with QRS prolongation, he may be able to go home tomorrow from an EP perspective. We did discuss additional treatment options of optimizing beta blockers versus possibly an eventual need for an ablation should antiarrhythmic therapy not be tolerated or failed. This was discussed with his family on the phone at his request and has been called to his as well at his request. His symptomatic bradycardia is likely a pulse deficit with his ongoing ventricular ectopy. I see no documented sinus bradycardia. Thank you for allowing me to participate in the care of this patient. Job ID: [id number]
[2020-06-29] MEDS: Metoprolol Tartrate 25 MG TAB PO SCH (21:27)
[2020-06-29] MEDS: Flecainide 50 MG TAB PO SCH (21:27)
[2020-06-29] MEDS: traZODone HCl 50 MG TAB PO SCH (21:28)
[2020-06-30] MEDS: Multivitamin W/ Minerals 1 TAB PO SCH (09:58)
[2020-06-30] MEDS: Primidone 50 MG TAB PO SCH (09:58)
[2020-06-30] MEDS: Metoprolol Tartrate 25 MG TAB PO SCH (09:58)
[2020-06-30] MEDS: Losartan 25 MG TAB PO SCH (09:59)
[2020-06-30] MEDS: NIFEdipine XL 60 MG TAB PO SCH (09:59)
[2020-06-30] MEDS: Enoxaparin Sodium 40 MG/0.4 ML SYRINGE SC SCH (10:00)
[2020-06-30] MEDS: Atorvastatin Calcium 20 MG TAB PO SCH (10:04)
[2020-06-30] MEDS: Flecainide 50 MG TAB PO SCH (10:10)
[2020-06-30] MEDS ORDERED: Flecainide 50 MG TAB PO SCH ×2 (10:15→21:00)
[2020-06-30 11:13] VITALS: BP 117/56; TEMP 98
--- NOTE | 2020-06-30 11:22 | DIS ---
DATE OF ADMISSION: 06/29/2020 DATE OF DISCHARGE: 06/30/2020 DISCHARGING PHYSICIAN: Alvarado Mares. CONSULTATION ON THE CASE: Dr. Brown, Cardiology. DISCHARGING DIAGNOSES: 1. Symptomatic bradycardia with multiple premature ventricular contractions and trigeminy. The patient is currently on metoprolol tartrate as well as flecainide 50 mg b.i.d. 2. Parkinson disease. 3. Benign essential hypertension. 4. Hyperlipidemia. 5. Prediabetes, diet controlled, management advised. HOSPITAL COURSE: This is a very pleasant 75-year-old male gentleman, who was admitted to the hospitalist services with complaints of generalized weakness with occasional episodes of dizziness. Initial evaluation in the emergency room as well as on telemetry showed evidence of multiple PVCs in both bigeminy as well as trigeminy. The patient was advised about starting him on metoprolol tartrate 25 mg b.i.d., which he tolerated very well and maintained his heart rate around 70s. During this course, the patient was advised about controlling his arrhythmia with PVCs and was started on flecainide 100 mg b.i.d., which eventually was transitioned to 50 mg b.i.d., which controlled his arrhythmia very well with well-controlled sinus rhythm at 70 to 80 per minute. The patient is being asymptomatic without any more complaints of generalized weakness, was advised for discharge planning. The patient also was extensively educated in regard to his hemoglobin A1c results and advised about prediabetes condition and diet management. Exercise therapy is also notified to the patient as well as his . At this point of time, the patient has been advised to follow up with cardiology services in 2 weeks and I have reviewed with cardiology nurse practitioner, Rubi Adan. The patient was hemodynamically optimized on discharge. All questions and concerns were addressed. DISPOSITION: Discharged home. PHYSICAL EXAMINATION: CVS: S1, S2. CHEST: Bilateral air entry present. ABDOMEN: Soft. EXTREMITIES: No cyanosis. ALLERGIES: NO KNOWN DRUG ALLERGIES. ACTIVITY: As tolerated. Fall precautions. DIET: 1800-kilocalorie ADA diet. MEDICATIONS ON DISCHARGE: 1. Flecainide 50 mg b.i.d. 2. Aspirin 81 mg daily. 3. Atorvastatin 20 mg daily. 4. Losartan 50 mg daily. 5. Metoprolol tartrate 25 mg b.i.d. 6. Primidone 50 mg b.i.d. DISCHARGE PLAN: The patient has been advised and educated about the diagnosis, treatment, and followup. The patient has been advised about followup care with cardiology services in 2 weeks. The whole discharge process including discharge coordination took me more than 35 minutes. FOLLOWUP: The patient is to follow up with cardiology services in 1 to 2 weeks. DME NEEDS: None. Job ID: [id number]
--- NOTE | 2020-06-30 16:03 | PDOC.EP ---
- Subjective Date: 06/30/20 Time: 08:00 Interval History: Feels greatly improved. No dizziness, weakness, or fatigue this AM. Eager to go home - Objective Allergies/Adverse Reactions: Allergies Allergy/AdvReac Type Severity Reaction Status Date / Time No Known Allergies Allergy Verified 06/28/20 16:19 Vital Signs & Weight: Vital Signs Temp Pulse Resp BP Pulse Ox 06/30/20 08:00 98 F 65 18 117/56 L 95 06/30/20 04:31 98.3 F 74 16 119/58 L 94 L Weight 182 lb 11.2 oz I/O: I/O 06/29/20 06/30/20 07/01/20 06:59 06:59 06:59 Intake Total 900 120 Balance 900 120 - Physical Exam General: alert & oriented x3, appears well, no apparent distress, speech clear, affect appropriate HEENT: mucus membranes moist, normocephaly Neck: supple neck, midline trachea, no JVD/HJR, no masses, no bruit, no lymphadenopathy, no thromegaly Cardiology: regular rate and rhythm, no murmur, regular rate, regular rhythm, PMI nondisplaced Lungs: clear to auscultation, normal breath sounds, normal exam, no wheeze, rales, rhonchi, no wheezes, no rales, no rhonchi Neurology: cranial nerve 2-12 intact, grossly intact, motor function intact, sensory function intact, negative rhomberg, coordination normal, no lateralizing findings Abdomen: unremarkable, active bowel sounds, soft, non-tender, no masses, no pulsations/bruits, no hepatosplenomegaly, HJR negative Extremities: dry, strong pulses, warm Skin: groin sites stable, device site stable w/o swelling Musculoskeletal: normal range of motion, no pain, no fluid collection - Labs Result Diagrams: 06/29/20 04:51 06/29/20 04:51 - EKG Interpretation EKG Method: Telemetry EKG shows: Sinus rhythm - Assessment/Plan Assessment/Plan: 1. PVCs, with associated dizziness, lightheadedness, and weakness. 2. Parkinson disease. 3. Sleep apnea. 4. Hypertension. 5. Dyslipidemia. 6. Preserved LVEF on echocardiogram in 05/2020. 7. Cardiolite stress test, unremarkable in 05/2020. rhythm stable with no bradycardia, and PVCs essentially stopped 2-3 hrs after 1st dose of Flecainide 100mg. Symptoms have resolved. Due to parkinsons, will DC on Flecainide 50mg BID and send a 48 hr monitor next week. If symptoms return can increase to 100mg BID, QRS on ECG was stable this AM. Follow up in 4 weeks. OK for DC by EP. Continue metoprolol as ordered.
== END 2020-06-30 12:12 | disposition home or self-care (01) | DRG 310 ==
LOC: ERS 20:31 → ERHOLD 23:02 → 3SE 06-28 13:46 → ERHOLD 06-28 18:29 → 3SE 06-28 18:30 → OBSVTOIN 06-29 15:29
PROVIDERS: ADMIT Internal Medicine; ATTEND Student in an Organized Health Care Education/Training Program
DX: R00.1 Bradycardia, unspecified (principal); I49.3 Ventricular premature depolarization; Z20.822 Contact with and (suspected) exposure to COVID-19; G20 Parkinson's disease; I10 Essential (primary) hypertension; E78.5 Hyperlipidemia, unspecified; F41.9 Anxiety disorder, unspecified; G47.30 Sleep apnea, unspecified; F32.9 Major depressive disorder, single episode, unspecified; R73.03 Prediabetes; Z79.899 Other long term (current) drug therapy; Z79.82 Long term (current) use of aspirin
CPT/HCPCS: 36415; 36416; 71045; 80053; 83036; 83735; 84443; 84484; 85007; 85025; 85027; 87635; 93005; 93010; 94760; 96372; G0378; J1650; U0003; U0005

== ENCOUNTER 2022-06-27 18:25 | Emergency (ER) | payer MEDICARE, BC, OTHER ==
[~2022-06-27 18:25] MED LIST: Iopamidol-370 76% 500 ML 1 ML ONE
[2022-06-27 18:53] LABS: #Basophils 0.1 thou/uL (0.0-0.2); #Eosinphils 0.1 thou/uL (0.0-0.7); #Lymphocytes 2.1 thou/uL (1.20-3.40); #Monocytes 0.5 thou/uL (0.11-0.59); %Basophils 1.4 % (0.0-1.0); %Eosinophils 1.3 % (0.0-10.0); %Lymphocytes 43.8 % (21.0-51.0); %Monocytes 10.7 % (0.0-10.0); %Neutrophils 42.8 % (42.0-75.0); Hemoglobin 13.9 g/dL (14.0-18.0); Mean Corpuscular HGB CONC 33.4 g/dL (32.0-36.0); Mean Corpuscular Hemoglobin 32.8 pg (27.0-31.0); Mean Corpuscular Volume 98.3 fl (78.0-98.0); Mean Platelet Volume 6.5 fL (7.4-10.4); Platelet Count 225 10x3/uL (130-400); RBC Distribution Width 10.5 % (11.5-14.5); Red Blood Cell (RBC) Count 4.24 mill/uL (4.70-6.10); White Blood Cell (WBC) Count 4.7 10x3/uL (4.8-10.8)
[2022-06-27 19:22] LABS: ALT (SGPT) 16 U/L (8-55); AST (SGOT) 18 U/L (5-34); Alkaline Phosphatase 51 U/L (40-110); Anion Gap 12 mmol/L (10-20); BUN (Urea Nitrogen) 18 mg/dL (8.4-25.7); Bilirubin, Total 0.4 mg/dL (0.2-1.2); Calc. Creatinine Clearance 0 mL/min (70-130); Calcium 9.9 mg/dL (7.8-10.44); Carbon Dioxide 28 mmol/L (23-31); Chloride 103 mmol/L (98-107); Estimated GFR 62; Globulin 3.4 g/dL (2.4-3.5); Glucose 115 mg/dL (83-110); Lipase 39 U/L (8-78); Potassium 4.6 mmol/L (3.5-5.1); Protein, Total 7.4 g/dL (5.8-8.1); Sodium 138 mmol/L (136-145)
[2022-06-27 22:51] LABS: Bilirubin Negative (Negative); Blood, Urine Negative (Negative); Clarity Clear (Clear); Glucose, Urine (Dipstick) Normal (Negative); Ketone, Urine Negative (Negative); Leukocyte Negative Leu/uL (Negative); Nitrite Negative (Negative); Protein, Urine (Dipstick) Negative (Neg-Trace); Specific Gravity, Urine 1.021 (1.002-1.036); Urobilinogen Normal mg/dL (Less than 2); pH, Urine 6.5 (5.0-9.0)
== END 2022-06-27 23:08 | disposition home or self-care (01) ==
LOC: ERS 18:25
DX: R10.30 Lower abdominal pain, unspecified (principal); R00.1 Bradycardia, unspecified; I10 Essential (primary) hypertension; E78.00 Pure hypercholesterolemia, unspecified; E78.5 Hyperlipidemia, unspecified
CPT/HCPCS: 36415; 74177; 80053; 81003; 83690; 84484; 85025; 93005; Q9967

== ENCOUNTER 2022-10-29 08:13 | Emergency (ER) | payer MEDICARE, BC, OTHER ==
[2022-10-29] MEDS ORDERED: Boostrix 0.5 ML (Tdap) VIAL (>/=7 yrs of age) ONE (09:32)
== END 2022-10-29 09:58 | disposition home or self-care (01) ==
LOC: ERS 08:13
DX: T22.111A Burn of first degree of right forearm, initial encounter (principal); L08.9 Local infection of the skin and subcutaneous tissue, unspecified; I10 Essential (primary) hypertension; W29.3XXA Contact with powered garden and outdoor hand tools and machinery, initial encounter
CPT/HCPCS: 90471; 90715

== ENCOUNTER 2023-07-30 20:16 | Emergency (ER) | payer MEDICARE, BC, OTHER ==
[2023-07-30 22:04] LABS: #Eosinphils 0.1 thou/uL (0.0-0.7); #Monocytes 0.6 thou/uL (0.11-0.59); #Neutrophils 3.3 thou/uL (1.40-6.50); %Basophils 0.5 % (0.0-1.0); %Eosinophils 0.8 % (0.0-10.0); %Lymphocytes 31.5 % (21.0-51.0); %Monocytes 10.8 % (0.0-10.0); %Neutrophils 56.1 % (42.0-75.0); Hematocrit 41.9 % (42.0-52.0); Hemoglobin 14.5 g/dL (14.0-18.0); Mean Corpuscular HGB CONC 34.6 g/dL (32.0-36.0); Mean Corpuscular Hemoglobin 32.7 pg (27.0-31.0); Mean Corpuscular Volume 94.4 fl (78.0-98.0); Mean Platelet Volume 8.9 fL (7.4-10.4); Platelet Count 254 10x3/uL (130-400); RBC Distribution Width 11.3 % (11.5-14.5); Red Blood Cell (RBC) Count 4.44 mill/uL (4.70-6.10); White Blood Cell (WBC) Count 5.9 10x3/uL (4.8-10.8)
[2023-07-30 22:19] LABS: PTT 28.5 sec (22.9-36.1); Prothrombin Time 13.2 sec (12.0-14.7)
[2023-07-30 22:33] LABS: ALT (SGPT) 16 U/L (8-55); AST (SGOT) 18 U/L (5-34); Albumin 4.2 g/dL (3.4-4.8); Alkaline Phosphatase 56 U/L (40-110); Anion Gap 12 mmol/L (10-20); BUN (Urea Nitrogen) 37 mg/dL (8.4-25.7); Bilirubin, Total 0.7 mg/dL (0.2-1.2); Calc. Creatinine Clearance 0 mL/min (70-130); Calcium 9.9 mg/dL (7.8-10.44); Carbon Dioxide 27 mmol/L (23-31); Chloride 104 mmol/L (98-107); Estimated GFR 45; Globulin 3.4 g/dL (2.4-3.5); Glucose 134 mg/dL (83-110); Protein, Total 7.6 g/dL (5.8-8.1); Sodium 139 mmol/L (136-145)
[2023-07-30 22:35] LABS: Troponin I Less than 0.010 ng/mL (< 0.028)
[2023-07-30] MEDS ORDERED: Aspirin Chewable 81 MG TAB ONE (23:00)
[2023-07-31 00:13] LABS: Influenza A by NAA Not Detected (NotDetected); Influenza B by NAA Not Detected (NotDetected); SARS-CoV-2 NAA Rapid Test Not Detected (NotDetected)
== END 2023-07-31 00:50 | disposition left against medical advice (07) ==
LOC: ERS 20:16
DX: I63.9 Cerebral infarction, unspecified (principal); I12.9 Hypertensive chronic kidney disease with stage 1 through stage 4 chronic kidney disease, or unspecified chronic kidney disease; N18.9 Chronic kidney disease, unspecified; E78.5 Hyperlipidemia, unspecified; G20.A1 Parkinson's disease without dyskinesia, without mention of fluctuations; F02.80 Dementia in other diseases classified elsewhere, unspecified severity, without behavioral disturbance, psychotic disturbance, mood disturbance, and anxiety; Z87.891 Personal history of nicotine dependence; R07.9 Chest pain, unspecified
CPT/HCPCS: 0240U; 70450; 71045; 80053; 84484; 85025; 85610; 85730; 93005; 94760; 99285; 36415